=== PATIENT | female | born 1930 | race Caucasian/White ===

== ENCOUNTER → 2016-09-25 | Outpatient (CLI) | payer MEDICARE, OTHER | LOC: YCHH 17:54 | PROVIDERS: ATTEND Family Medicine | DX: N39.0 Urinary tract infection, site not specified (principal) ==

== ENCOUNTER → 2016-09-26 | Outpatient (CLI) | payer MEDICARE, OTHER | LOC: YCHH 15:25 | PROVIDERS: ATTEND Family Medicine | DX: I25.10 Atherosclerotic heart disease of native coronary artery without angina pectoris (principal); D64.9 Anemia, unspecified; I10 Essential (primary) hypertension ==

== ENCOUNTER → 2016-10-20 | Outpatient (CLI) | payer MEDICARE, OTHER | END | disposition home or self-care (01) | LOC: YCHH 10:01 | PROVIDERS: ATTEND Family Medicine | DX: N39.0 Urinary tract infection, site not specified (principal) ==

== ENCOUNTER → 2016-11-08 | Outpatient (CLI) | payer MEDICARE, OTHER | END | disposition home or self-care (01) | LOC: YCHH 09:05 | PROVIDERS: ATTEND Family Medicine | DX: E11.42 Type 2 diabetes mellitus with diabetic polyneuropathy (principal); I25.10 Atherosclerotic heart disease of native coronary artery without angina pectoris; D64.9 Anemia, unspecified ==

== ENCOUNTER → 2016-11-15 | Outpatient (CLI) | payer MEDICARE, OTHER | END | disposition home or self-care (01) | LOC: YCHH 14:26 | PROVIDERS: ATTEND Family Medicine | DX: N39.0 Urinary tract infection, site not specified (principal) ==

== ENCOUNTER 2016-11-19 13:44 | Emergency (ER) | payer MEDICARE, OTHER ==
[2016-11-19 13:58] VITALS: TEMP 97.5
--- NOTE | 2016-11-19 15:00 | RAD ---
EXAM: Lumbar Spine 3 Views CLINICAL INDICATION: 86-year-old female status post fall with pain from L1 L4. TECHNIQUE: Three views of the lumbar spine were obtained in AP, lateral, and spot projections. COMPARISON: None. FINDINGS: Alignment of the lumbar spine is within normal limits. There is no subluxation or fracture deformity. Morphology of the vertebral bodies and intervertebral disc spaces is compatible with moderate multilevel degenerative change. Endplate deformity of superior aspect L1 level compatible with degenerative change or sequela of prior superior endplate compression fracture stable in comparison to examination dated 10/13/2015. Otherwise mild multilevel degenerative change present with ventral vertebral body osteophytes. Facet degenerative change. Postoperative changes of the L4-5 level with intervertebral disk spacing hardware and screws traversing the bilateral pedicles of L4 and L5 similar comparison to the previous examination. No discrete lucency is identified to suggest hardware malfunction. Lower lumbar spine laminectomy at the L4-5 level. Aortobiiliac vascular calcifications noted. The remainder of the visualized bones are within normal limits. IMPRESSION: No acute radiographic abnormality. If the patient's symptoms persist, follow-up assessment with MRI or CT lumbar spine may be considered. Electronically signed by: Vinita Estrada MD 11/19/2016 2:58 PM CDT
--- NOTE | 2016-11-19 15:16 | ED.PDOC ---
History of Present Illness - General Chief Complaint: Back Pain or Injury Stated Complaint: back pain Time Seen by Provider: 11/19/16 13:50 Source: patient, [facility] records Exam Limitations: clinical condition - History of Present Illness Initial Comments: the patient is a 86-year-old female presenting to the emergency room after having fallen while trying to either get to her wheelchair or walker. She is reporting low back pain bilaterally in the area of L2-L4. She has had previous surgery from the level of L4-L5 and has had a previous compression fracture at L1 in the past she does appear to be able to move her legs as well as she is normally able to her sensation is appear to be baseline for her. Discomfort currently is fairly minimal. She does hurt more when she moves around. She apparently did take a pain pill before coming here and it seems to have kicked and as the patient is mildly drowsy. She does apparently have some mild dementia which limits the interview. She does not appear to be any distress. I see no evidence of any other injury and she is not reporting pain elsewhere. She apparently did not hit her head. Timing/Duration: momentarily Severity: moderate Improving Factors: immobilization Worsening Factors: movement Associated Symptoms: denies symptoms Allergies/Adverse Reactions: Allergies Codeine Allergy (Verified 05/09/16 19:24) Home Medications: Ambulatory Orders ALPRAZolam [Xanax] 0.5 mg PO TID 04/25/15 Amitriptyline HCl [Elavil 100MG] 100 mg PO BEDTIME 04/25/15 Carvedilol [Coreg] 12.5 mg PO BID 04/25/15 Donepezil Hydrochloride [Aricept] 10 mg PO BEDTIME 04/25/15 Ferrous Sulfate [Iron] 65 mg PO DAILY 04/25/15 Furosemide [Lasix] 20 mg PO DAILY 04/25/15 HYDROcodone 5MG/APAP 325MG [[place] 5/325] 1 tab PO Q4H PRN 04/25/15 Insulin Detemir [Levemir] 25 unit SUBCU BEDTIME 04/25/15 Losartan Potassium [Cozaar] 50 mg PO DAILY 04/25/15 Memantine HCl [Namenda] 10 mg PO BID 04/25/15 Metformin HCl 500 mg PO BID 04/25/15 Oxcarbazepine [Trileptal] 150 mg PO BID 04/25/15 Pantoprazole Sodium 40 mg PO DAILY 04/25/15 Polyethylene Glycol-Propylene [Systane] 2 drops BOTH_EYES PRN PRN 04/25/15 Potassium Chloride Microencaps [Klor-Con M10] 10 meq PO DAILY 04/25/15 QUEtiapine FUMARATE [SEROquel] 25 mg PO 9A5P 04/25/15 Quetiapine Fumarate [Seroquel] 50 mg PO BEDTIME 04/25/15 Sertraline HCl 100 mg PO DAILY 04/25/15 Sitagliptin Phosphate [Januvia] 25 mg PO DAILY 04/25/15 Naproxen [Naprosyn] 500 mg PO BID PRN #20 tab 10/13/15 Levofloxacin [Levaquin] 500 mg PO DAILY #10 tab 05/09/16 Albuterol Sulfate Nebs [Proventil Nebs] 2.5 mg INH Q4H PRN 11/19/16 Arformoterol Tartrate [Brovana] 15 mcg IN BID 11/19/16 Aspirin [Aspirin Adult Low Dose] 81 mg PO DAILY 11/19/16 Cholecalciferol [Vitamin D] 1,000 unit PO DAILY 11/19/16 Isosorbide Mononitrate [Imdur] 30 mg PO DAILY 11/19/16 Magnesium Hydroxide [Milk Of Magnesia] 30 ml PO DAILY 11/19/16 Vit W/ Ferrous Fumara [] 1 tab PO DAILY 11/19/16 Sulfamethoxazole-Trimethoprim [Bactrim Ds 800-160 mg] 1 tab PO ELENI-OTH-DAY 11/19 Trazodone HCl 1 - 2 mg PO BEDTIME 11/19/16 Review of Systems - Review of Systems Constitutional: States: malaise - after her pills EENTM: States: no symptoms reported Respiratory: States: no symptoms reported Cardiology: States: no symptoms reported Gastrointestinal/Abdominal: States: no symptoms reported Genitourinary: States: no symptoms reported Musculoskeletal: States: back pain Skin: States: no symptoms reported Neurological: States: no symptoms reported Endocrine: States: no symptoms reported All other Systems: No Change from Baseline Past Medical History (General) - Patient Medical History Hx Seizures: No Hx Stroke: No Hx Dementia: Yes Hx Asthma: No Hx of COPD: No Hx Cardiac Disorders: Yes - pacer Hx Congestive Heart Failure: No Hx Pacemaker: No Hx Hypertension: Yes Hx Thyroid Disease: No Hx Diabetes: Yes Hx Gastroesophageal Reflux: No Hx Renal Disease: No Hx Cancer: No Hx of HIV: No Hx Hepatitis C: No Hx MRSA: No Surgical History: Hysterectomy - Vaccination History Hx Tetanus, Diphtheria Vaccination: Yes - current Hx Influenza Vaccination: Yes Hx Pneumococcal Vaccination: Yes - Social History Hx Tobacco Use: Yes Hx Alcohol Use: No Hx Substance Use: No Hx Substance Use Treatment: No Hx Depression: No - Activities of Daily Living Assisted/Assisted Living (if applicable):: [facility] Family Medical History - Family History Mother Living Status: Physical Exam - Physical Exam General Appearance: Alert - mildly drowsy, Comfortable, No apparent distress Eye Exam: bilateral normal Ears, Nose, Throat: normal ENT inspection, other - hearing is chronically decreased bilaterally Neck: non-tender, full range of motion, supple Respiratory: chest non-tender, lungs clear, normal breath sounds, no respiratory distress, no accessory muscle use Cardiovascular/Chest: normal peripheral pulses, regular rate, rhythm, no edema Peripheral Pulses: radial,right: 2+, radial,left: 2+, dorsalis pedis,right: 2+, dorsalis pedis,left: 2+, posterior tibialis,right: 2+, posterior tibialis,left: 2+ Gastrointestinal/Abdominal: normal bowel sounds, non tender, soft Rectal Exam: deferred, other - no pain over the sacral area however Back Exam: other - the patient does have diffuse discomfort to palpation both adjacent to and over the spinous processes of L2-L4. There is no obvious deformity. There is no bruising. There is no erythema. Extremity: normal range of motion, non-tender, normal inspection, no pedal edema , no calf tenderness, normal capillary refill Neurologic: alert, normal mood/affect - for her, other - the patient does have some dementia but is apparently in her baseline mental state Skin Exam: normal color Comments: Vital Signs - 24 hr 11/19/16 13:53 Temperature 97.5 F L Pulse Rate [ 78 Left Brachial] Respiratory 20 Rate Blood Pressure 115/56 [Left Arm] O2 Sat by Pulse 85 L Oximetry Progress - Progress Progress: 11/19/16 15:19 the patient is a 86-year-old female that fell earlier today and has had some lower back pain since. X-ray here shows no evidence of any new fracture or subluxation. Hardware appears to be stable in her lumbar spine. There appear to be no significant neurological changes and no significant skin damage from the fall. No other injuries are obvious. The patient needs to be transferred carefully between her bed and walker or wheelchair to prevent further falls. She will likely be sore for the next few weeks. She already has adequate pain medications at her disposal. She can follow-up with her primary care doctor towards the end of this coming week for reevaluation. Return to the emergency room for any acute worsening. Departure - Departure Clinical Impression: Acute myofascial strain Disposition: Discharge to Asst Living Condition: Fair Departure Forms: ED Discharge - Pt. Copy, Patient Portal Self Enrollment Instructions: DI for Low Back Pain Diet: regular diet Activity: increase activity as tolerated Home Medications: Ambulatory Orders ALPRAZolam [Xanax] 0.5 mg PO TID 04/25/15 Amitriptyline HCl [Elavil 100MG] 100 mg PO BEDTIME 04/25/15 Carvedilol [Coreg] 12.5 mg PO BID 04/25/15 Donepezil Hydrochloride [Aricept] 10 mg PO BEDTIME 04/25/15 Ferrous Sulfate [Iron] 65 mg PO DAILY 04/25/15 Furosemide [Lasix] 20 mg PO DAILY 04/25/15 HYDROcodone 5MG/APAP 325MG [[place] 5/325] 1 tab PO Q4H PRN 04/25/15 Insulin Detemir [Levemir] 25 unit SUBCU BEDTIME 04/25/15 Losartan Potassium [Cozaar] 50 mg PO DAILY 04/25/15 Memantine HCl [Namenda] 10 mg PO BID 04/25/15 Metformin HCl 500 mg PO BID 04/25/15 Oxcarbazepine [Trileptal] 150 mg PO BID 04/25/15 Pantoprazole Sodium 40 mg PO DAILY 04/25/15 Polyethylene Glycol-Propylene [Systane] 2 drops BOTH_EYES PRN PRN 04/25/15 Potassium Chloride Microencaps [Klor-Con M10] 10 meq PO DAILY 04/25/15 QUEtiapine FUMARATE [SEROquel] 25 mg PO 9A5P 04/25/15 Quetiapine Fumarate [Seroquel] 50 mg PO BEDTIME 04/25/15 Sertraline HCl 100 mg PO DAILY 04/25/15 Sitagliptin Phosphate [Januvia] 25 mg PO DAILY 04/25/15 Naproxen [Naprosyn] 500 mg PO BID PRN #20 tab 10/13/15 Levofloxacin [Levaquin] 500 mg PO DAILY #10 tab 05/09/16 Albuterol Sulfate Nebs [Proventil Nebs] 2.5 mg INH Q4H PRN 11/19/16 Arformoterol Tartrate [Brovana] 15 mcg IN BID 11/19/16 Aspirin [Aspirin Adult Low Dose] 81 mg PO DAILY 11/19/16 Cholecalciferol [Vitamin D] 1,000 unit PO DAILY 11/19/16 Isosorbide Mononitrate [Imdur] 30 mg PO DAILY 11/19/16 Magnesium Hydroxide [Milk Of Magnesia] 30 ml PO DAILY 11/19/16 Vit W/ Ferrous Fumara [] 1 tab PO DAILY 11/19/16 Sulfamethoxazole-Trimethoprim [Bactrim Ds 800-160 mg] 1 tab PO ELENI-OTH-DAY 11/19 Trazodone HCl 1 - 2 mg PO BEDTIME 11/19/16 Additional Instructions: the patient is a 86-year-old female that fell earlier today and has had some lower back pain since. X-ray here shows no evidence of any new fracture or subluxation. Hardware appears to be stable in her lumbar spine. There appear to be no significant neurological changes and no significant skin damage from the fall. No other injuries are obvious. The patient needs to be transferred carefully between her bed and walker or wheelchair to prevent further falls. She will likely be sore for the next few weeks. She already has adequate pain medications at her disposal. She can follow-up with her primary care doctor towards the end of this coming week for reevaluation. Return to the emergency room for any acute worsening.
[2016-11-19 16:09] VITALS: BP 150/86; O2SAT 96
== END 2016-11-19 16:09 ==
LOC: ER 13:44
DX: S39.012A Strain of muscle, fascia and tendon of lower back, initial encounter (principal); F03.90 Unspecified dementia, unspecified severity, without behavioral disturbance, psychotic disturbance, mood disturbance, and anxiety; E11.9 Type 2 diabetes mellitus without complications; I10 Essential (primary) hypertension; Z88.6 Allergy status to analgesic agent; Z79.899 Other long term (current) drug therapy; Z79.4 Long term (current) use of insulin; Z95.0 Presence of cardiac pacemaker; Z79.82 Long term (current) use of aspirin; Z87.891 Personal history of nicotine dependence; W19.XXXA Unspecified fall, initial encounter; Y92.129 Unspecified place in nursing home as the place of occurrence of the external cause

== ENCOUNTER → 2016-11-23 | Outpatient (CLI) | payer MEDICARE, OTHER | END | disposition home or self-care (01) | LOC: YCHH 13:21 | PROVIDERS: ATTEND Family Medicine | DX: N39.0 Urinary tract infection, site not specified (principal) ==

== ENCOUNTER → 2016-11-30 | Outpatient (CLI) | payer MEDICARE, OTHER ==
--- NOTE | 2016-11-30 14:24 | CT ---
EXAM DESCRIPTION: CT Lumbar Spine CLINICAL HISTORY: LOW BACK PAIN COMPARISON: Lumbar spine radiographs 11/19/2016 TECHNIQUE: Multiple axial images of the lumbar spine without contrast. Multiplanar reformatted images. FINDINGS: The designated L5-S1 disc space is on axial image 68. There is a mild compression fracture of the T12 vertebral body with up to 20% loss of stature along the superior endplate. This is likely acute, as there is cortical irregularity along the central aspect of the endplate. Again demonstrated is a mild compression fracture of the L1 vertebral body with 30% loss of stature along the superior endplate. Posterior and interbody fusion hardware again demonstrated L4-L5. There is moderate calcific plaque in the abdominal aorta and its major branches. Colonic diverticulosis without evidence of diverticulitis. L1-2: No significant findings. L2-3: Mild posterior disc narrowing. Mild facet hypertrophy. Small posterior disc bulge with no spinal canal or neural foraminal stenosis. L3-4: Mild posterior disc narrowing. Moderate facet hypertrophy. Prior laminectomy changes. The spinal canal appears patent. Osteophytic ridging of the endplates. Mild to moderate bilateral neural foraminal stenosis. L4-5: Operative changes with laminectomies. The spinal canal appears widely patent. Osteophytic ridging of the endplates more pronounced on the left. Moderate left and mild right neural foraminal stenosis. L5-S1: Mild facet hypertrophy. Laminectomy changes. No spinal canal or neural foraminal stenosis. IMPRESSION: 1. Acute appearing compression fracture of the T12 vertebral body involving the superior endplate. Recommend MRI for confirmation. This would be amenable to vertebral body augmentation. 2. Chronic appearing compression fracture at L1. 3. Operative changes at L4-L5. 4. Multilevel disc degeneration and facet degenerative changes. At L3-L4, there is [id number] bilateral neural foraminal stenosis. 5. Other findings as above. Electronically signed by: Vasu Cross MD 11/30/2016 2:23 PM CDT
== END | disposition home or self-care (01) ==
LOC: CT 09:40
PROVIDERS: ATTEND Family Medicine
DX: M51.27 Other intervertebral disc displacement, lumbosacral region (principal)

== ENCOUNTER → 2017-01-30 | Outpatient (CLI) | payer MEDICARE, OTHER | END | disposition home or self-care (01) | LOC: GMAM 14:50 | PROVIDERS: ATTEND Family Medicine | DX: E03.9 Hypothyroidism, unspecified (principal) ==

== ENCOUNTER 2017-02-17 12:07 | Emergency (ER) | payer MEDICARE, OTHER ==
[2017-02-17 12:13] VITALS: TEMP 98.3
--- NOTE | 2017-02-17 12:18 | ED.PDOC ---
History of Present Illness - General Chief Complaint: General Stated Complaint: feeling weak/facial droop Time Seen by Provider: 02/17/17 12:08 Source: patient, RN notes reviewed, Vital Signs reviewed, EMS notes reviewed Exam Limitations: clinical condition - has dementia - History of Present Illness Initial Comments: Doris Ruiz 86 y/o female was brought by EMS to [facility] ER after they were called up by nurse at assisted living when they noticed that patient had facial droop unknown side.Patient also stated that she had been feeling weak for several weeks stating not hungry.She has DM2,dementia ,htn.On her arrival here she was talking to the nurse ,no facial droop noted,speech fluent. Timing/Duration: gone, other - weak for several days according to patient Improving Factors: nothing Worsening Factors: nothing Associated Symptoms: loss of appetite Allergies/Adverse Reactions: Allergies Codeine Allergy (Verified 02/17/17 12:23) Home Medications: Ambulatory Orders ALPRAZolam [Xanax] 0.5 mg PO TID 04/25/15 Amitriptyline HCl [Elavil 100MG] 100 mg PO BEDTIME 04/25/15 Carvedilol [Coreg] 12.5 mg PO BID 04/25/15 Donepezil Hydrochloride [Aricept] 10 mg PO BEDTIME 04/25/15 Ferrous Sulfate [Iron] 65 mg PO DAILY 04/25/15 Furosemide [Lasix] 20 mg PO DAILY 04/25/15 HYDROcodone 5MG/APAP 325MG [[place] 5/325] 1 tab PO Q4H PRN 04/25/15 Insulin Detemir [Levemir] 25 unit SUBCU BEDTIME 04/25/15 Losartan Potassium [Cozaar] 50 mg PO DAILY 04/25/15 Memantine HCl [Namenda] 10 mg PO BID 04/25/15 Metformin HCl 500 mg PO BID 04/25/15 Oxcarbazepine [Trileptal] 150 mg PO BID 04/25/15 Pantoprazole Sodium 40 mg PO DAILY 04/25/15 Polyethylene Glycol-Propylene [Systane] 2 drops BOTH_EYES PRN PRN 04/25/15 Potassium Chloride Microencaps [Klor-Con M10] 10 meq PO DAILY 04/25/15 QUEtiapine FUMARATE [SEROquel] 25 mg PO 9A5P 04/25/15 Quetiapine Fumarate [Seroquel] 50 mg PO BEDTIME 04/25/15 Sertraline HCl 100 mg PO DAILY 04/25/15 Sitagliptin Phosphate [Januvia] 25 mg PO DAILY 04/25/15 Naproxen [Naprosyn] 500 mg PO BID PRN #20 tab 10/13/15 Levofloxacin [Levaquin] 500 mg PO DAILY #10 tab 05/09/16 Albuterol Sulfate Nebs [Proventil Nebs] 2.5 mg INH Q4H PRN 11/19/16 Arformoterol Tartrate [Brovana] 15 mcg IN BID 11/19/16 Aspirin [Aspirin Adult Low Dose] 81 mg PO DAILY 11/19/16 Cholecalciferol [Vitamin D] 1,000 unit PO DAILY 11/19/16 Isosorbide Mononitrate [Imdur] 30 mg PO DAILY 11/19/16 Magnesium Hydroxide [Milk Of Magnesia] 30 ml PO DAILY 11/19/16 Vit W/ Ferrous Fumara [] 1 tab PO DAILY 11/19/16 Sulfamethoxazole-Trimethoprim [Bactrim Ds 800-160 mg] 1 tab PO ELENI-OTH-DAY 11/19 Trazodone HCl 1 - 2 mg PO BEDTIME 11/19/16 Review of Systems - Review of Systems Constitutional: States: see HPI EENTM: States: no symptoms reported Respiratory: States: no symptoms reported Cardiology: States: no symptoms reported Gastrointestinal/Abdominal: States: no symptoms reported Genitourinary: States: no symptoms reported Musculoskeletal: States: no symptoms reported Skin: States: no symptoms reported Neurological: States: see HPI Endocrine: States: no symptoms reported Hematologic/Lymphatic: States: no symptoms reported Past Medical History (General) - Patient Medical History Hx Seizures: No Hx Stroke: No Hx Dementia: Yes Hx Asthma: No Hx of COPD: No Hx Cardiac Disorders: Yes - pacer Hx Congestive Heart Failure: No Hx Pacemaker: No Hx Hypertension: Yes Hx Thyroid Disease: No Hx Diabetes: Yes Hx Gastroesophageal Reflux: No Hx Renal Disease: No Hx Cancer: No Hx of HIV: No Hx Hepatitis C: No Hx MRSA: No Surgical History: pacemaker, other - hysterectomy - Vaccination History Hx Tetanus, Diphtheria Vaccination: Yes - current Hx Influenza Vaccination: Yes Hx Pneumococcal Vaccination: Yes - Social History Hx Tobacco Use: Yes Hx Alcohol Use: No Hx Substance Use: No Hx Substance Use Treatment: No Hx Depression: No - Activities of Daily Living Prison/Assisted Living (if applicable):: [facility] Grooming Ability: Minimum Assistance Eating (Feeding) Ability: Minimum Assistance Toileting Ability: Minimum Assistance Family Medical History - Family History Mother Family History: Unknown Living Status: Physical Exam - Physical Exam General Appearance: Alert, No apparent distress, Other - speech fluent Eye Exam: bilateral normal Ears, Nose, Throat: hearing grossly normal, normal ENT inspection, normal pharynx Neck: non-tender, full range of motion, supple Respiratory: chest non-tender, lungs clear, normal breath sounds Cardiovascular/Chest: normal peripheral pulses, regular rate, rhythm, no edema, no gallop, no murmur Peripheral Pulses: radial,right: 2+, radial,left: 2+ Gastrointestinal/Abdominal: normal bowel sounds, non tender, soft, no organomegaly, no pulsatile mass Back Exam: normal inspection, no CVA tenderness Extremity: normal range of motion, non-tender, normal inspection Neurologic: slab inspector II-XII nml as tested, no motor/sensory deficits, alert, normal mood/affect, oriented x 3, other - ,pronator drift negative Skin Exam: normal color, warm/dry, cyanosis Lymphatic: no adenopathy Progress - Progress Progress: 02/17/17 14:42 Vital Signs - 8 hr 02/17/17 12:12 Temperature 98.3 F Pulse Rate [ 71 Left Radial] Respiratory 18 Rate Blood Pressure 123/52 [L arm] O2 Sat by Pulse 98 Oximetry - Results/Orders Results/Orders: 02/17/17 12:18 URINALYSIS Stat 02/17/17 12:21 IV Care:Saline Lock per Protoc QSHIFT 02/17/17 12:30 Be Our Guest Tray (BOG) ONCE EKG STAT 02/17/17 14:40 TROPONIN-I Stat Laboratory Results - last 24 hr 02/17/17 02/17/17 12:24 12:24 WBC 11.8 H RBC 4.51 Hgb 12.0 Hct 36.9 MCV 81.9 MCH 26.6 L MCHC 32.5 L RDW 17.9 H Plt Count 201 MPV 8.3 Absolute Neuts (auto) 9.30 H Absolute Lymphs (auto) 1.40 Absolute Monos (auto) 1.00 H Absolute Eos (auto) 0.10 Absolute Basos (auto) 0.00 Neutrophils % 79.0 H Lymphocytes % 11.6 L Monocytes % 8.3 Eosinophils % 0.9 L Basophils % 0.2 Sodium 134 L Potassium 4.7 Chloride 97 L Carbon Dioxide 26 Anion Gap 15.7 BUN 20 H Creatinine 1.03 BUN/Creatinine Ratio 19.4 Random Glucose 262 H Serum Osmolality 279.9 Calcium 10.1 Total Bilirubin 0.7 AST 22 ALT 15 Alkaline Phosphatase 52 Creatine Kinase 35 CK-MB (CK-2) 0.8 CK-MB (CK-2) % Not Reportable Troponin I 0.02 B-Natriuretic Peptide 429.0 H* Serum Total Protein 8.0 Albumin 4.2 Globulin 3.8 H Albumin/Globulin Ratio 1.1 TSH 2.82 - EKG/XRAY/CT EKG: Sinus, LVH Comments: pacemaker,IRBB,LVH, heart rate-72 XRAY: chest - no acute abnormalities/radiologist CT Ordered: Yes - head-no infarct or hemorrhage Departure - Departure Clinical Impression: Malaise and fatigue Dementia Qualifiers: Dementia type: unspecified type Dementia behavioral disturbance: with behavioral disturbance Qualified Code(s): F03.91 - Unspecified dementia with behavioral disturbance Time of Disposition: 15:15 Disposition: Discharge to Asst Living Condition: Fair Departure Forms: ED Discharge - Pt. Copy, Patient Portal Self Enrollment Referrals: Nilay Sorensen MD [Primary Care Provider] - 1-2 Weeks Home Medications: Ambulatory Orders ALPRAZolam [Xanax] 0.5 mg PO TID 04/25/15 Amitriptyline HCl [Elavil 100MG] 100 mg PO BEDTIME 04/25/15 Carvedilol [Coreg] 12.5 mg PO BID 04/25/15 Donepezil Hydrochloride [Aricept] 10 mg PO BEDTIME 04/25/15 Ferrous Sulfate [Iron] 65 mg PO DAILY 04/25/15 Furosemide [Lasix] 20 mg PO DAILY 04/25/15 HYDROcodone 5MG/APAP 325MG [[place] 5/325] 1 tab PO Q4H PRN 04/25/15 Insulin Detemir [Levemir] 25 unit SUBCU BEDTIME 04/25/15 Losartan Potassium [Cozaar] 50 mg PO DAILY 04/25/15 Memantine HCl [Namenda] 10 mg PO BID 04/25/15 Metformin HCl 500 mg PO BID 04/25/15 Oxcarbazepine [Trileptal] 150 mg PO BID 04/25/15 Pantoprazole Sodium 40 mg PO DAILY 04/25/15 Polyethylene Glycol-Propylene [Systane] 2 drops BOTH_EYES PRN PRN 04/25/15 Potassium Chloride Microencaps [Klor-Con M10] 10 meq PO DAILY 04/25/15 QUEtiapine FUMARATE [SEROquel] 25 mg PO 9A5P 04/25/15 Quetiapine Fumarate [Seroquel] 50 mg PO BEDTIME 04/25/15 Sertraline HCl 100 mg PO DAILY 04/25/15 Sitagliptin Phosphate [Januvia] 25 mg PO DAILY 04/25/15 Naproxen [Naprosyn] 500 mg PO BID PRN #20 tab 10/13/15 Levofloxacin [Levaquin] 500 mg PO DAILY #10 tab 05/09/16 Albuterol Sulfate Nebs [Proventil Nebs] 2.5 mg INH Q4H PRN 11/19/16 Arformoterol Tartrate [Brovana] 15 mcg IN BID 11/19/16 Aspirin [Aspirin Adult Low Dose] 81 mg PO DAILY 11/19/16 Cholecalciferol [Vitamin D] 1,000 unit PO DAILY 11/19/16 Isosorbide Mononitrate [Imdur] 30 mg PO DAILY 11/19/16 Magnesium Hydroxide [Milk Of Magnesia] 30 ml PO DAILY 11/19/16 Vit W/ Ferrous Fumara [] 1 tab PO DAILY 11/19/16 Sulfamethoxazole-Trimethoprim [Bactrim Ds 800-160 mg] 1 tab PO ELENI-OTH-DAY 11/19 Trazodone HCl 1 - 2 mg PO BEDTIME 11/19/16 Additional Instructions: RETURN TO EMERGENCY ROOM NEEDED;CONTINUE WITH HOME MEDICINE
--- NOTE | 2017-02-17 12:54 | RAD ---
PROCEDURE: XR CHEST 1 VIEW HISTORY: weak COMPARISON: 05/09/2016 TECHNIQUE: Single projection of the chest was done. FINDINGS: Note is made of median sternotomy and stable position of the dual chamber left-sided pacemaker wires . There are no discrete airspace infiltrates, pneumothoraces or pleural effusions. The pulmonary vascularity is normal. The cardiomediastinal silhouette is stable. IMPRESSION: There is no acute pleural-parenchymal process seen in the imaged lung elkins. Location of Interpretation: Teleradiology Electronically signed by: Paras Diallo MD 02/17/2017 12:53 PM CDT Workstation: [id number]
--- NOTE | 2017-02-17 13:06 | CT ---
PROCEDURE: Head HISTORY: weak, reported facial droop Indication: Same as above Comparison: 05/09/2016 Technique: CT of the head was done without intravenous contrast was done in axial plane only This exam was performed according to our departmental dose-optimization program, which includes automated exposure control, adjustment of the mA and/or KV according to the patient's size and/or use of iterative reconstruction technique. FINDINGS: There is no intracranial hemorrhage, midline shift mass effect or acute focal infarct. There is prominence of the sylvian fissures and the cortical sulci reflecting age related volume loss. There is periventricular and deep white matter low attenuation, most likely related to small vessel white matter ischemic disease. Intracranial vascular calcifications are seen. If clinical concern exists regarding an acute ischemic/vascular pathology being responsible for patient's symptomatology, an MRI of the brain is more sensitive than the current study, in ruling out such a possibility. There is good vargas/white matter differentiation. The ventricular system is normal. The mastoid air cells are unremarkable . The paranasal sinuses show changes of minimal chronic sinusitis . There is no visualization of acute fractures involving the calvarium or the skull base. IMPRESSION: There is no acute intracranial abnormality. Age related and chronic involutional changes are seen. Electronically signed by: Paras Diallo MD 02/17/2017 1:05 PM CDT Workstation: [id number]
[2017-02-17 15:55] VITALS: BP 127/61; O2SAT 94
== END 2017-02-17 15:35 ==
LOC: ER 12:07
DX: R53.83 Other fatigue (principal); I45.10 Unspecified right bundle-branch block; I51.7 Cardiomegaly; I10 Essential (primary) hypertension; F03.90 Unspecified dementia, unspecified severity, without behavioral disturbance, psychotic disturbance, mood disturbance, and anxiety; E11.9 Type 2 diabetes mellitus without complications; Z95.0 Presence of cardiac pacemaker; Z79.82 Long term (current) use of aspirin; Z79.899 Other long term (current) drug therapy; Z79.4 Long term (current) use of insulin

== ENCOUNTER → 2017-02-23 | Outpatient (CLI) | payer MEDICARE, OTHER | END | disposition home or self-care (01) | LOC: YCHH 11:08 | PROVIDERS: ATTEND Family Medicine | DX: E03.9 Hypothyroidism, unspecified (principal) ==

== ENCOUNTER → 2017-04-01 | Outpatient (CLI) | payer MEDICARE, OTHER | END | disposition home or self-care (01) | LOC: SOLHO 12:06 | PROVIDERS: ATTEND Family Medicine | DX: R53.81 Other malaise (principal) ==

== ENCOUNTER → 2017-06-29 | Outpatient (CLI) | payer OTHER | END | disposition home or self-care (01) | LOC: SOLHO 13:51 | PROVIDERS: ATTEND Family Medicine | DX: R82.90 Unspecified abnormal findings in urine (principal) ==

== ENCOUNTER 2017-08-14 16:47 | Inpatient (IN) | payer MEDICARE, OTHER ==
--- NOTE | 2017-08-14 17:33 | RAD ---
EXAM DESCRIPTION: Chest,1 View CLINICAL HISTORY: 86 years Female, hypoxia COMPARISON: February 17, 2017 TECHNIQUE: AP portable chest. FINDINGS: Single view of the chest demonstrates previous sternotomy and permanent indwelling pacer. Modest cardiomegaly and mild central vascular congestion is more prominent than seen on prior January study. Early volume overload and cardiac decompensation is suspected. No large pleural effusions are seen and no dense consolidation noted. IMPRESSION: Cardiomegaly and mild central vascular congestion with slight deterioration from prior study. Electronically signed by: Nilay Garcia MD 08/14/2017 5:32 PM MAINFRAME ANALYST
[2017-08-14] MEDS ORDERED: OSELTAMIVIR 75 MG CAP PO ONE (18:16)
[2017-08-14] MEDS ORDERED: SODIUM CHLORIDE 0.9% 1000ML 500 ML IVS ONE (18:26)
[2017-08-14] MEDS ORDERED: INSULIN LISPRO 100 UNITS/ML PEN SUBCU ONE (18:33)
--- NOTE | 2017-08-14 18:58 | ED.PDOC ---
History of Present Illness - General Chief Complaint: Respiratory Problem Stated Complaint: congestion Time Seen by Provider: 08/14/17 17:01 Source: patient, family Exam Limitations: clinical condition - History of Present Illness Initial Comments: the patient is an 86-year-old female presenting to the emergency room secondary to progressive hypoxia and generalized weakness over the last 4-5 days. She's been having a significant rattling cough over that time.. Her oral intake has decreased significantly. The patient was put on azithromycin for the concern for a pneumonia by her primary care doctor a few days ago. Additionally they have increased her diuretic thinking that her congestive heart failure may be contributing. The patient is on [facility] hospice for dementia. Patient was sent up for evaluation by her primary care doctor.blood sugars have been markedly elevated as well recently. Timing/Duration: 1 week Severity: moderate Improving Factors: nothing Worsening Factors: nothing Associated Symptoms: cough, fever/chills, loss of appetite, malaise, weakness Allergies/Adverse Reactions: Allergies Atorvastatin [From Lipitor] Allergy (Verified 08/14/17 17:05) Codeine Allergy (Verified 02/17/17 12:23) Home Medications: Ambulatory Orders ALPRAZolam [Xanax] 0.5 mg PO Q4H PRN 04/25/15 Amitriptyline HCl [Elavil 100MG] 50 mg PO BEDTIME 04/25/15 Carvedilol [Coreg] 12.5 mg PO BID 04/25/15 Ferrous Sulfate [Iron] 65 mg PO DAILY 04/25/15 Furosemide [Lasix] 20 mg PO DAILY 04/25/15 HYDROcodone 5MG/APAP 325MG [[place] 5/325] 1 tab PO BID 04/25/15 Metformin HCl 500 mg PO BID 04/25/15 Oxcarbazepine [Trileptal] 150 mg PO BID 04/25/15 Polyethylene Glycol-Propylene [Systane] 2 drops BOTH_EYES PRN PRN 04/25/15 Potassium Chloride Microencaps [Klor-Con M10] 10 meq PO DAILY 04/25/15 QUEtiapine FUMARATE [SEROquel] 25 mg PO .8A2P 04/25/15 Quetiapine Fumarate [Seroquel] 50 mg PO BEDTIME 04/25/15 Sitagliptin Phosphate [Januvia] 25 mg PO DAILY 04/25/15 Albuterol Sulfate Nebs [Proventil Nebs] 2.5 mg INH Q4H PRN 11/19/16 Aspirin [Aspirin Adult Low Dose] 81 mg PO DAILY 11/19/16 Isosorbide Mononitrate [Imdur] 30 mg PO DAILY 11/19/16 Arformoterol Tartrate [Brovana] 15 mcg IN BID 08/14/17 Azithromycin 250 mg PO DAILY 08/14/17 Dexamethasone 4 mg PO BID 08/14/17 Docusate Sodium 100 mg PO DAILY 08/14/17 Exenatide [Bydureon] 2 mg SC WKLY 08/14/17 HYDROcodone 5MG/APAP 325MG [[place] 5/325] 1 tab PO Q4H PRN 08/14/17 Haloperidol [Haldol] 2 mg PO Q8H PRN 08/14/17 Haloperidol [Haldol] 2 mg PO QID 08/14/17 Lorazepam [Lorazepam Intensol] 0.5 ml PO Q4H PRN 08/14/17 Losartan Potassium [Cozaar] 50 mg PO DAILY 08/14/17 Methenamine Mandelate 0.5 gm PO BEDTIME 08/14/17 Naproxen [Naprosyn] 220 mg PO Q12H PRN 08/14/17 Omeprazole 20 mg PO DAILY 08/14/17 Ondansetron [Zofran Odt] 8 mg PO Q8H PRN 08/14/17 Polyethylene Glycol 3350 [Miralax] 17 gm PO DAILY 08/14/17 Sennosides 8.6MG [Senokot] 2 ea PO Q24H PRN 08/14/17 Sertraline HCl [Zoloft] 100 mg PO DAILY 08/14/17 Ziprasidone HCl [Geodon] 40 mg PO BID 08/14/17 Review of Systems - Review of Systems Constitutional: States: malaise EENTM: States: no symptoms reported Respiratory: States: cough, short of breath, wheezing Cardiology: States: no symptoms reported Gastrointestinal/Abdominal: States: other - anorexia Genitourinary: States: no symptoms reported Musculoskeletal: States: no symptoms reported Skin: States: no symptoms reported Neurological: States: other - increased confusion and less interaction All other Systems: No Change from Baseline Past Medical History (General) - Patient Medical History Hx Seizures: No Hx Stroke: No Hx Dementia: Yes Hx Asthma: No Hx of COPD: Yes Hx Cardiac Disorders: Yes - pacer Hx Congestive Heart Failure: No Hx Pacemaker: No Hx Hypertension: Yes Hx Thyroid Disease: No Hx Diabetes: Yes Hx Gastroesophageal Reflux: Yes Hx Renal Disease: No Hx Cancer: No Hx of HIV: No Hx Hepatitis C: No Hx MRSA: No Surgical History: noncontributory - Vaccination History Hx Tetanus, Diphtheria Vaccination: Yes - current Hx Influenza Vaccination: Yes Hx Pneumococcal Vaccination: Yes - Social History Hx Tobacco Use: Yes Hx Alcohol Use: No Hx Substance Use: No Hx Substance Use Treatment: No Hx Depression: No - Activities of Daily Living Group Home/Assisted Living (if applicable):: [facility] Agency (if applicable):: [facility] Family Medical History - Family History Mother Family History: Unknown Living Status: Physical Exam - Physical Exam General Appearance: Alert, Comfortable, Frail Eye Exam: bilateral normal Ears, Nose, Throat: hearing grossly normal, other - ucous membranes are fairly dry. Nares are reddened with clear rhinorrhea. Posterior oropharynx does show some mild erythema. Neck: full range of motion, supple Respiratory: accessory muscle use - mild, rales, rhonchi Cardiovascular/Chest: normal peripheral pulses, no edema, other - regular rate Peripheral Pulses: radial,right: 2+, radial,left: 2+, dorsalis pedis,right: 2+, dorsalis pedis,left: 2+ Gastrointestinal/Abdominal: non tender, soft Rectal Exam: deferred Back Exam: no CVA tenderness Extremity: non-tender, no pedal edema, no calf tenderness, normal capillary refill Neurologic: boarding house cook II-XII nml as tested, alert, other - flat affect. The patient does answer simple yes no questions fairly appropriately. Memory is poor. Skin Exam: normal color Comments: Vital Signs - 24 hr 08/14/17 08/14/17 08/14/17 17:02 18:13 18:15 Temperature 99.6 F Pulse Rate [ 77 79 Left Brachial] Respiratory 20 20 20 Rate Blood Pressure 173/72 183/61 [Left Arm] O2 Sat by Pulse 78 L 97 Oximetry 08/14/17 08/14/17 18:40 18:56 Temperature 100.5 F H Pulse Rate [ Left Brachial] Respiratory Rate Blood Pressure [Left Arm] O2 Sat by Pulse 94 L Oximetry Progress - Progress Progress: 08/14/17 19:00 the patient's 86-year-old female presenting to the emergency room secondary to progressive hypoxia and general deterioration over the last 4-5 days. The patient does have the flu. She has been started on some Tamiflu. She does have numerous other laboratory abnormalities such as a very mild elevation in her muscle enzymes as well as her liver enzymes and she does have significant hyperglycemia. A lot of these problems are likely contributed to by significant dehydration. The patient is receiving a 500 cc bolus of normal saline. She will need to be reevaluated after that. She is additionally receiving 6 units of insulin lispro. A blood culture has been performed. The patient has been placed on higher flow oxygen to prevent hypoxia. She was 78% on room air upon arrival and only corrected to about 86% with 2 L. She is now on 3-1/2 L and saturating approximately 95% on room air. She does appear to have worsening renal failure with recent diuresis but she also does appear to have worsening congestive heart failure in spite of the diuresis. Ultimately the patient may not tolerate the required rehydration for her current illness. The patient is on hospice however this diagnosis is outside the purview of her primary hospice diagnosis. She is not being admitted to the hospital under the hospice service. Family does understand this patient is extremely complicated and that there is a very high mortality with her current condition. The family is to delineate exactly what her resuscitation status is with the architectural manager upon her physician. - Results/Orders Results/Orders: 08/14/17 17:01 Telemetry .CONTINUOUS 08/14/17 17:07 Flu A+B (PCR) [INFLUENZA A & B BY PCR] Stat positive for flu Laboratory Results - last 24 hr 08/14/17 08/14/17 17:26 17:26 WBC 7.7 RBC 4.44 Hgb 12.9 Hct 38.8 MCV 87.3 MCH 29.1 MCHC 33.3 RDW 14.0 Plt Count 258 MPV 9.0 Absolute Neuts (auto) 6.60 Absolute Lymphs (auto) 0.50 L Absolute Monos (auto) 0.60 Absolute Eos (auto) 0.00 Absolute Basos (auto) 0.00 Neutrophils % 85.2 H Lymphocytes % 6.6 L Monocytes % 8.1 Eosinophils % 0.0 L Basophils % 0.1 Sodium 147 H Potassium 5.0 Chloride 104 Carbon Dioxide 30 Anion Gap 18.0 BUN 65 H Creatinine 1.04 BUN/Creatinine Ratio 62.5 H Random Glucose 333 H Serum Osmolality 324.1 H Calcium 9.4 Total Bilirubin 0.5 AST 144 H ALT 69 H Alkaline Phosphatase 49 Creatine Kinase 590 H* CK-MB (CK-2) 0.8 CK-MB (CK-2) % Not Reportable Troponin I 0.07 H* B-Natriuretic Peptide 796.0 H* Serum Total Protein 7.8 Albumin 3.6 Globulin 4.2 H Albumin/Globulin Ratio 0.9 L chest x-ray is concerning for possible worsening CHF. Departure - Departure Clinical Impression: Influenza, pneumonia, Dehydration, Hypoxia, Advanced age CHF exacerbation Qualifiers: Congestive heart failure type: unspecified congestive heart failure type Qualified Code(s): I50.9 - Heart failure, unspecified Acute renal failure Qualifiers: Acute renal failure type: unspecified Qualified Code(s): N17.9 - Acute kidney failure, unspecified Disposition: Admit Patient Condition: Serious Referrals: Nilay Sorensen MD [Primary Care Provider] - 1-2 Weeks Home Medications: Ambulatory Orders ALPRAZolam [Xanax] 0.5 mg PO Q4H PRN 04/25/15 Amitriptyline HCl [Elavil 100MG] 50 mg PO BEDTIME 04/25/15 Carvedilol [Coreg] 12.5 mg PO BID 04/25/15 Ferrous Sulfate [Iron] 65 mg PO DAILY 04/25/15 Furosemide [Lasix] 20 mg PO DAILY 04/25/15 HYDROcodone 5MG/APAP 325MG [[place] 5/325] 1 tab PO BID 04/25/15 Metformin HCl 500 mg PO BID 04/25/15 Oxcarbazepine [Trileptal] 150 mg PO BID 04/25/15 Polyethylene Glycol-Propylene [Systane] 2 drops BOTH_EYES PRN PRN 04/25/15 Potassium Chloride Microencaps [Klor-Con M10] 10 meq PO DAILY 04/25/15 QUEtiapine FUMARATE [SEROquel] 25 mg PO .8A2P 04/25/15 Quetiapine Fumarate [Seroquel] 50 mg PO BEDTIME 04/25/15 Sitagliptin Phosphate [Januvia] 25 mg PO DAILY 04/25/15 Albuterol Sulfate Nebs [Proventil Nebs] 2.5 mg INH Q4H PRN 11/19/16 Aspirin [Aspirin Adult Low Dose] 81 mg PO DAILY 11/19/16 Isosorbide Mononitrate [Imdur] 30 mg PO DAILY 11/19/16 Arformoterol Tartrate [Brovana] 15 mcg IN BID 08/14/17 Azithromycin 250 mg PO DAILY 08/14/17 Dexamethasone 4 mg PO BID 08/14/17 Docusate Sodium 100 mg PO DAILY 08/14/17 Exenatide [Bydureon] 2 mg SC WKLY 08/14/17 HYDROcodone 5MG/APAP 325MG [[place] 5/325] 1 tab PO Q4H PRN 08/14/17 Haloperidol [Haldol] 2 mg PO Q8H PRN 08/14/17 Haloperidol [Haldol] 2 mg PO QID 08/14/17 Lorazepam [Lorazepam Intensol] 0.5 ml PO Q4H PRN 08/14/17 Losartan Potassium [Cozaar] 50 mg PO DAILY 08/14/17 Methenamine Mandelate 0.5 gm PO BEDTIME 08/14/17 Naproxen [Naprosyn] 220 mg PO Q12H PRN 08/14/17 Omeprazole 20 mg PO DAILY 08/14/17 Ondansetron [Zofran Odt] 8 mg PO Q8H PRN 08/14/17 Polyethylene Glycol 3350 [Miralax] 17 gm PO DAILY 08/14/17 Sennosides 8.6MG [Senokot] 2 ea PO Q24H PRN 08/14/17 Sertraline HCl [Zoloft] 100 mg PO DAILY 08/14/17 Ziprasidone HCl [Geodon] 40 mg PO BID 08/14/17 Decision To Admit - Decistion To Admit Decision to Admit Reason: Medical Nature Decision to Admit Date: 08/14/17 Decision to Admit Time: 19:06
[2017-08-14] MEDS ORDERED: IBUPROFEN SUSP 100 MG/5 ML UD PO ONE (19:06)
--- NOTE | 2017-08-14 21:44 | HP ---
SUPERVISING PHYSICIAN: Nilay Sorensen M.D. CHIEF COMPLAINT: Congestion and shortness of breath. HISTORY OF PRESENT ILLNESS: This is an 86 year-old female patient who presented to the Emergency Room secondary to progressive hypoxia and generalized weakness that had been going on for 4 to 5 days. She lives in the [facility] and is on [facility] for dementia. Her fatigue and malaise became progressively worse over the last few days and she was put on Azithromycin for concerns of pneumonia by her primary care physician, Dr. Sorensen. Her diuretic was also increased thinking that her congestive heart failure may be worsening. Due to her hypoxia and elevated fever, she was sent to the Emergency Room. In the Emergency Room, her temperature was as high as 103.3. Her Influenza swab A and B by PCR was positive for Influenza A. Blood cultures were done. Her WBCs were 7.7 but she did have a left shift with neutrophils at 85.2%. Her blood sugar was as high as 513 with sodium 147. Creatinine kinase was 590 with BNP of 796. She was very lethargic in the Emergency Room and had difficulty arousing. Her family was at the bedside. She was given fluids due to her fever. The family understood that by giving additional fluid could worsen her congestive heart failure. I was called for hospital admission. PAST MEDICAL HISTORY: 1. Coronary artery disease. 2. Congestive heart failure of unknown etiology. 3. Hyperlipidemia. 4. Hypertension. 5. Peptic ulcer disease. 6. Type 2 diabetes mellitus. 7. Dementia. 8. Anemia. PAST SURGICAL HISTORY: 1. Tonsillectomy. 2. Three vessel coronary artery bypass graft in 2012. 3. Open reduction and internal fixation of the wrist. 4. Pacemaker implantation. OUTPATIENT MEDICATIONS: Per the EMR and awaiting verification. ALLERGIES: LIPITOR. FAMILY HISTORY: Noncontributory. SOCIAL HISTORY: She recently moved from [place] to [place] to be closer to her family. She is . She has 2 children. She quit smoking approximately 30 years ago. There is no report of any ETOH use. REVIEW OF SYSTEMS: Unable to obtain due to the patient's mental status. PHYSICAL EXAMINATION: VITAL SIGNS: Temperature is 102.5, heart rate 98, blood pressure 198/75, respiratory rate 22, O2 sat was 78% on admission to the Emergency Room. It is now 89%. GENERAL: This is an 86 year-old female patient who is lying in her hospital bed. She is obtunded at this time. HEENT: Normocephalic and atraumatic. Oral mucous membranes are dry. NECK: Supple without mass. CHEST: She is tachypneic. She has scattered rales throughout with a few rhonchi noted, especially in the apices. CARDIOVASCULAR: Regular rate and rhythm. ABDOMEN: Soft, nondistended. Bowel sounds are positive. EXTREMITIES: No cyanosis, clubbing or edema. NEUROLOGIC: She is obtunded. She does not answer any questions, but she does open her eyes to voice. SKIN: Warm and dry. LABORATORY: As per the History of Present Illness. RADIOLOGY: Chest x-ray per radiology interpretation shows cardiomegaly and mild central vascular congestion with slight deterioration from the prior study in January of 2017. All other labs and films have been reviewed via the EMR. ASSESSMENT: 1. Influenza A. 2. Congestive heart failure of unknown etiology. 3. Febrile illness most likely secondary to #1. 4. Coronary artery disease. 5. Hypertension. 6. Diabetes mellitus type 2. 7. Hyperglycemia on admission to the Emergency Room with a blood sugar of 513. PLAN: We will admit the patient to the hospital. We will give her a judicious amount of fluids. I will also start her on Tamiflu. Will repeat her lab in the morning. I will restart her outpatient medications as soon as they are verified. It may be beneficial to admit her to inpatient hospice after her fever has improved as she has a very poor prognosis. I will also place a Zapata catheter if needed. We will also need a urine sample for urinalysis. Will monitor blood cultures as they become available. Will continue to monitor the patient closely and follow as needed. Dr. Sorensen is the collaborating physician available for consultation. #[id number] [facility] CENTERLynne
[2017-08-14] MEDS ORDERED: LEVALBUTEROL NEBS 1.25 MG/3 ML VIAL NEB PRN (23:43)
[2017-08-14] MEDS ORDERED: ACETAMINOPHEN 325 MG TAB PO PRN (23:43)
[2017-08-14] MEDS ORDERED: SODIUM CHLORIDE 0.9% (FLUSH) 10 ML SYG IV PRN (23:43)
[2017-08-14] MEDS ORDERED: NON-FORMULARY MEDICATION 1 EA MIS (Oxcarbazepine [Trileptal] 150 MG) PO SCH (23:45)
[2017-08-14] MEDS ORDERED: CARVEDILOL 12.5 MG PO SCH (23:45)
[2017-08-14] MEDS ORDERED: IV SET AND CAP CHANGE INJ INJ SCH (23:45)
[2017-08-14] MEDS ORDERED: LORAZEPAM PO PRN (23:49)
[2017-08-14] MEDS ORDERED: HALOPERIDOL TAB 1 MG TAB PO PRN (23:49)
[2017-08-14] MEDS ORDERED: ALPRAZolam 0.5 MG TAB PO PRN (23:49)
[2017-08-14] MEDS ORDERED: HYDROcodone 5MG/APAP 325MG 1 EA TAB PO PRN (23:49)
[2017-08-14] MEDS ORDERED: cloNIDine HCL 0.1 MG TAB PO PRN (23:59)
[2017-08-15] MEDS ORDERED: GLUCAGON INJ 1 MG VIAL SUBCU PRN (00:03)
[2017-08-15] MEDS ORDERED: DEXTROSE 50% 25 GM/50 ML SYG IV PRN (00:03)
[2017-08-15] MEDS ORDERED: SODIUM CHLORIDE 0.9% 250ML 0 ML ONE (00:13)
[2017-08-15] MEDS ORDERED: CARVEDILOL 12.5 MG TAB ONE ×2 (00:13→07:48)
[2017-08-15] MEDS ORDERED: LOSARTAN POTASSIUM 25 MG TAB ONE ×2 (00:13→07:49)
[2017-08-15] MEDS ORDERED: OXcarbazepine 300 MG TAB PO ONE ×2 (00:13→07:49)
[2017-08-15] MEDS ORDERED: AZITHROMYCIN IV 500 MG VIAL IVPB ONE ×2 (00:14→20:15)
[2017-08-15] MEDS: NON-FORMULARY MEDICATION 1 EA MIS (Quetiapine Fumarate [Seroquel] 50 MG) PO SCH ×2 (00:20→00:39)
[2017-08-15] MEDS: NON-FORMULARY MEDICATION 1 EA MIS (Losartan Potassium [Cozaar] 50 MG) PO SCH ×2 (00:20→00:39)
[2017-08-15] MEDS ORDERED: AZITHROMYCIN IV 500 MG in SODIUM CHLORIDE 0.9% 250ML 250 ML IVPB SCH (00:30)
[2017-08-15] MEDS: ACETAMINOPHEN SUPPOSITORY 650 MG PR PRN ×3 (00:34→15:00)
[2017-08-15] MEDS: LEVALBUTEROL NEBS 1.25 MG/3 ML VIAL INH SCH ×2 (01:21→09:20)
[2017-08-15] MEDS: INSULIN LISPRO 100 UNITS/ML PEN SUBCU SCH ×3 (07:31→17:59)
[2017-08-15] MEDS ORDERED: ASPIRIN (CHEWABLE) 81 MG TAB ONE (07:49)
[2017-08-15] MEDS ORDERED: SITagliptin 50 MG TAB PO ONE (07:49)
[2017-08-15] MEDS: SERTRALINE HCL 50 MG TAB PO SCH ×2 (08:30→10:15)
[2017-08-15] MEDS: SITagliptin 50 MG TAB PO SCH ×2 (08:30→10:14)
[2017-08-15] MEDS: OSELTAMIVIR 75 MG CAP PO SCH ×2 (08:30→10:14)
[2017-08-15] MEDS: ISOSORBIDE MONONITRATE (IMDUR) 30 MG TAB PO SCH ×2 (08:31→10:13)
[2017-08-15] MEDS: DEXAMETHASONE 4 MG TAB PO SCH ×2 (08:31→10:13)
[2017-08-15] MEDS: HALOPERIDOL TAB 1 MG TAB PO SCH ×4 (08:31→17:31)
[2017-08-15] MEDS: HYDROcodone 5MG/APAP 325MG 1 EA TAB PO SCH ×2 (08:31→10:14)
[2017-08-15] MEDS: metFORMIN HCL 500 MG TAB PO SCH ×2 (08:32→10:13)
[2017-08-15] MEDS: LOSARTAN POTASSIUM 25 MG TAB PO SCH ×2 (08:32→10:13)
[2017-08-15] MEDS: DOCUSATE SODIUM 100 MG CAP PO SCH ×2 (08:32→10:12)
[2017-08-15] MEDS: OXcarbazepine 300 MG TAB PO SCH ×2 (08:32→10:15)
[2017-08-15] MEDS: CARVEDILOL 12.5 MG TAB PO SCH ×2 (08:33→10:12)
[2017-08-15] MEDS: ASPIRIN EC 81 MG TAB PO SCH ×2 (08:39→10:12)
[2017-08-15] MEDS ORDERED: SODIUM CHLORIDE 0.45% 1000ML 1,000 ML IVS PRN (08:51)
[2017-08-15] MEDS ORDERED: FERROUS SULFATE 325 MG TAB PO SCH (09:00)
[2017-08-15] MEDS ORDERED: ARFORMOTEROL TARTRATE 15 MCG/2 ML NEB NEB SCH (09:00)
[2017-08-15] MEDS ORDERED: levoFLOXacin 500MG IV 500 MG in PREMIX BAG 1 BAG IVPB SCH (09:30)
[2017-08-15] MEDS ORDERED: levoFLOXacin 500MG IV 100 ML IVPB ONE (09:58)
[2017-08-15] MEDS ORDERED: QUEtiapine FUMARATE 25 MG TAB PO SCH ×2 (14:00→21:00)
[2017-08-15] MEDS ORDERED: LEVALBUTEROL NEBS 1.25 MG/3 ML VIAL NEB SCH (16:00)
[2017-08-15] MEDS ORDERED: metFORMIN HCL 500 MG TAB PO SCH (17:00)
[2017-08-15 20:04] VITALS: BP 150/65; TEMP 99.8
[2017-08-15] MEDS ORDERED: SODIUM CHLORIDE 0.9% 250ML 250 ML ONE (20:14)
[2017-08-15] MEDS ORDERED: AMITRIPTYLINE HCL 25 MG TAB PO SCH (21:00)
[2017-08-15] MEDS ORDERED: METHENAMINE MANDELATE PO SCH (21:00)
[2017-08-15 23:24] VITALS: O2SAT 79
[2017-08-21] MEDS ORDERED: EXENATIDE 2 MG SC SCH (09:00)
--- NOTE | 2017-08-23 13:56 | DS ---
SUPERVISING PHYSICIAN: Nilay Sorensen MD DISCHARGE DIAGNOSIS: 1. . ADMISSION DIAGNOSIS: 1. Influenza A. 2. Congestive heart failure of unknown etiology. 3. Febrile illness, most likely secondary to #1. 4. Coronary artery disease. 5. Hypertension. 6. Diabetes mellitus, type 2. HISTORY OF PRESENT ILLNESS: This is an 86-year-old female patient who presented to the Emergency Room secondary to progressive hypoxia and generalized weakness that had been going on for 4 to 5 days. She lives in the [facility] and is on [facility] for dementia. Her fatigue and malaise had progressively worsened over the previous several days and she had been put on azithromycin fro concerns of pneumonia. Her diuretic was also increased thinking that her congestive heart failure may be worsening. Due to her hypoxia and elevated fever, she was sent to the Emergency Room. In the Emergency Room, her temperature was as high as 103.3. Her Influenza swab A and B by PCR was positive for Influenza A. Blood cultures were done. Her WBCs were 7.7, but she did have a left shift. Her blood sugar was as high as 513. BNP 796. She was very lethargic in the Emergency Room. She was admitted to the hospital for fluids due to the high fever and the influenza. HOSPITAL COURSE: She was admitted to the hospital and was given levofloxacin and also given a small amount of fluids. Her fever continued to be high throughout her stay in spite of Tylenol treatment. The family was aware of the dire prognosis and the patient was a DNR. During her hospital stay, she was extremely lethargic and was unable to answer any questions. She became progressively more obtunded. She tonight at 2140. DISCHARGE PLAN: The patient at 2140. DISCHARGE MEDICATIONS: None. Dr. Sorensen is the collaborating physician and available for consultation. #[id number] [facility]
== END 2017-08-15 23:55 | disposition expired | DRG 194 ==
LOC: ER 16:47 → MS 21:43 → OBSVTOIN 21:43
PROVIDERS: ADMIT Nurse Practitioner Acute Care; ATTEND Nurse Practitioner Acute Care
DX: J09.X1 Influenza due to identified novel influenza A virus with pneumonia (principal); N17.9 Acute kidney failure, unspecified; E86.0 Dehydration; R09.02 Hypoxemia; I11.0 Hypertensive heart disease with heart failure; I50.9 Heart failure, unspecified; I25.10 Atherosclerotic heart disease of native coronary artery without angina pectoris; E11.65 Type 2 diabetes mellitus with hyperglycemia; F03.90 Unspecified dementia, unspecified severity, without behavioral disturbance, psychotic disturbance, mood disturbance, and anxiety; D64.9 Anemia, unspecified; Z87.891 Personal history of nicotine dependence; Z95.0 Presence of cardiac pacemaker; Z95.1 Presence of aortocoronary bypass graft; Z88.8 Allergy status to other drugs, medicaments and biological substances; Z87.11 Personal history of peptic ulcer disease; Z88.5 Allergy status to narcotic agent; Z79.891 Long term (current) use of opiate analgesic; Z79.84 Long term (current) use of oral hypoglycemic drugs; Z79.82 Long term (current) use of aspirin; Z79.1 Long term (current) use of non-steroidal anti-inflammatories (NSAID); Z66 Do not resuscitate